=== PATIENT | female | born 1995 | race Two or more races ===

== ENCOUNTER 2023-09-30 03:16 | Inpatient (IN) | payer OTHER ==
[~2023-09-30] VITALS: Ht 167.6 cm; Wt 64.9 kg
[2023-09-30] MEDS ORDERED: ZYLOPRIM100 M1 PO (03:18)
[2023-09-30] MEDS ORDERED: ZOFRAN8 MG PO (03:19)
[2023-09-30] MEDS ORDERED: OXYCODONE HCL20 M1 PO (03:19)
[2023-09-30] MEDS ORDERED: ALPRAZOLAM ODT1 MG PO (03:24)
[2023-09-30] MEDS ORDERED: HYOSCYAMINE0.125 M2 PO (03:25)
[2023-09-30] MEDS ORDERED: MEPERIDINE HCL/PF 50 MG/ML VIAL IM STA (03:33)
[2023-09-30] MEDS ORDERED: PROMETHAZINE HCL 50 MG/ML AMPUL IM STA (03:34)
[2023-09-30] MEDS ORDERED: FAMOTIDINE/PF 20 MG/2 ML VIAL IV PUSH STA (03:34)
[2023-09-30] MEDS ORDERED: 0.9 % SODIUM CHLORIDE 1,000 ML IV ONE (03:45)
[2023-09-30 04:00] LABS: HEMATOCRIT 38.5 % (36.0-45.00); HEMOGLOBIN 13.4 g/dL (12.0-15.00); MEAN CELL VOLUME 87.1 fL (80.00-100.00); MEAN CORPUSCULAR HEMOGLOBIN 30.4 pg (27.00-32.0); MEAN CORPUSCULAR HGB CONC 34.9 g/dl (32.0-36.0); PLATELET COUNT 290 K/uL (150-450); RED BLOOD COUNT 4.42 M/uL (4.00-6.00); RED CELL DISTRIBUTION WIDTH 12.7 % (11.5-14.5)
[2023-09-30 04:00] LABS: PH,URINE 7.5 (5.0-8.0); URINE APPEARANCE Error; URINE BILIRRUBIN Negative (NEGATIVE); URINE BLOOD Negative; URINE COLOR Yellow; URINE GLUCOSE Negative (NEGATIVE); URINE LEUKOCYTE Trace; URINE NITRATE Negative; URINE PROTEIN Negative (NEGATIVE); URINE UROBILINOGEN 0.2 E.U./dl
[2023-09-30 04:01] LABS: URINE BACTERIA 26.4 uL (0.0-1933); URINE EPITHELIAL CELLS 14.2 uL (0.0-38.8); URINE RBC 6.3 uL (0.0-20.8); URINE WBC 20.8 uL (0.0-23.2)
[2023-09-30 04:14] LABS: INR 1.18; PARTIAL THROMBOPLASTIN TIME 26.2 SECONDS (22.0-34.0); PROTHROMBIN TIME 12.2 SECONDS (9.0-11.5)
[2023-09-30] MEDS ORDERED: ONDANSETRON HCL 2 MG/ML VIAL IV STA (04:46)
[2023-09-30 04:50] LABS: ALBUMIN 4.7 gm/dL (3.4-5.0); ALKALINE PHOSPHATASE 63 U/L (50-136); ALT/SGPT 22 U/L (12-78); AMYLASE 156 U/L (25-115); ANION GAP 16 (10.0-20.0); AST/SGOT 14 U/L (15-37); BILIRUBIN TOTAL 0.66 mg/dL (0.3-1.2); BILIRUBIN,UNCONJUGATED 0.46 mg/dL (0.0-0.6); BLOOD UREA NITROGEN 9 mg/dL (7-18); BUN CREA RATIO 10 (7.0-25.0); CALCIUM 9.7 mg/dL (8.5-10.1); CARBON DIOXIDE 21 mEq/L (21-32); CHLORIDE 108 mmol/L (98-107); CREATININE SERUM 0.92 mg/dL (0.55-1.02); GFR 71.68; GLOBULINA 3.7 G/DL (2.4-3.5); GLUCOSE FASTING 131 mg/dL (65-100); HCG QUANTITATIVE < 1 mUI/mL (1-3); OSMOLALITY SERUM 285 MOSM/KG (275-295); SODIUM 143 mmol/L (136-145); TOTAL PROTEIN 8.4 gm/dL (6.4-8.2)
[2023-09-30 04:51] LABS: LIPASE 112 U/L (13-75)
[2023-09-30 05:02] LABS: POTASSIUM 2.47 mEq/L (3.5-5.1)
[2023-09-30] MEDS ORDERED: MEPERIDINE HCL 25 MG/ML AMPUL IV STA (06:08)
[2023-09-30 06:43] LABS: CALCIUM 8.8 mg/dL (8.5-10.1); CREATININE SERUM 0.64 mg/dL (0.55-1.02); GFR 108.96
[2023-09-30 06:48] LABS: POTASSIUM 2.59 mEq/L (3.5-5.1)
[2023-09-30] MEDS ORDERED: POTASSIUM CHLORIDE IN 0.9%NACL 1,000 ML IV ONE (07:00)
[2023-09-30] MEDS ORDERED: LORazepam 2 MG/ML VIAL IV ONE (09:15)
[2023-09-30 10:20] LABS: PHOSPHOKINASE CREATININE 381 U/L (26-192)
[2023-09-30 10:26] LABS: C-REACTIVE PROTEIN < 0.29 MG/DL (0.00-0.29)
[2023-09-30] MEDS ORDERED: ONDANSETRON HCL 8 MG in 0.9 % SODIUM CHLORIDE 50 ML IV ONE (14:30)
[2023-09-30] MEDS ORDERED: ACETAMINOPHEN 500 MG GEL..CAP PO PRN (14:30)
[2023-09-30] MEDS ORDERED: CEFTRIAXONE SODIUM 2,000 MG in 0.9 % SODIUM CHLORIDE 100 ML IV SCH (14:34)
[2023-09-30 14:40] LABS: COCAINE NEGATIVE (NEGATIVE); METHADONE NEGATIVE (NEGATIVE); OPIATES NEGATIVE (NEGATIVE); THC ( Cannabinoids) POSITIVE (NEGATIVE)
[2023-09-30] MEDS ORDERED: 0.9 % SODIUM CHLORIDE 1,000 ML IV SCH (14:45)
[2023-09-30] MEDS ORDERED: POTASSIUM CHLORIDE IN WATER 100 ML IV SCH (16:00)
[2023-09-30] MEDS ORDERED: PROMETHAZINE HCL 25 MG/ML AMPUL IM ONE (16:00)
[2023-09-30 16:42] LABS: URINE APPEARANCE Clear; URINE BILIRRUBIN Negative (NEGATIVE); URINE BLOOD Small; URINE COLOR Yellow; URINE GLUCOSE Negative (NEGATIVE); URINE LEUKOCYTE Small; URINE NITRATE Negative; URINE PROTEIN Negative (NEGATIVE); URINE UROBILINOGEN 0.2 E.U./dl
[2023-09-30 16:45] LABS: URINE BACTERIA 60.4 uL (0.0-1933); URINE EPITHELIAL CELLS 29.6 uL (0.0-38.8); URINE RBC 7.3 uL (0.0-20.8); URINE WBC 31.5 uL (0.0-23.2)
[2023-09-30] MEDS ORDERED: SUCRALFATE 1 G TABLET PO SCH (17:00)
[2023-09-30 17:03] LABS: MAGNESIUM 1.9 mg/dL (1.8-2.4)
[2023-09-30] MEDS ORDERED: FAMOTIDINE/PF 20 MG in 0.9 % SODIUM CHLORIDE 8 ML IV PUSH SCH (21:00)
[2023-10-01] MEDS ORDERED: ONDANSETRON HCL 2 MG/ML VIAL IV PRN (01:00)
[2023-10-01] MEDS ORDERED: MORPHINE SULFATE 4 MG/ML CARTRIDGE IV PRN (02:45)
[2023-10-01 05:42] LABS: ALBUMIN 3.5 gm/dL (3.4-5.0); BILIRUBIN TOTAL 0.61 mg/dL (0.3-1.2); CALCIUM 8.7 mg/dL (8.5-10.1); CREATININE SERUM 0.63 mg/dL (0.55-1.02); GFR 110.95; POTASSIUM 3.4 mEq/L (3.5-5.1); TOTAL PROTEIN 6.5 gm/dL (6.4-8.2)
[2023-10-01] MEDS ORDERED: PANTOPRAZOLE SODIUM 40 MG/VIAL VIAL IV SCH (12:40)
[2023-10-01] MEDS ORDERED: KETOROLAC TROMETHAMINE 30 MG VIAL IV SCH (12:40)
[2023-10-01] MEDS ORDERED: LORazepam 2 MG/ML VIAL IV SCH (12:40)
[2023-10-01] MEDS ORDERED: METOCLOPRAMIDE HCL 5 MG/ML VIAL IV SCH (21:03)
[2023-10-02 07:13] LABS: CREATININE SERUM 0.6 mg/dL (0.55-1.02); GFR 117.38; POTASSIUM 3.12 mEq/L (3.5-5.1)
[2023-10-02] MEDS ORDERED: POTASSIUM CHLORIDE IN WATER 100 ML IV SCH (10:17)
[2023-10-02] MEDS ORDERED: MAGNESIUM SULFATE IN WATER 50 ML IV ONE (10:30)
[2023-10-03] MEDS ORDERED: POTASSIUM CHLORIDE 20MEQ/100ML H2O PB IV ONE (06:22)
[2023-10-03 08:59] LABS: CALCIUM 8.6 mg/dL (8.5-10.1); CREATININE SERUM 0.58 mg/dL (0.55-1.02); GFR 122.06; POTASSIUM 3.55 mEq/L (3.5-5.1)
== END 2023-10-03 14:13 | disposition home or self-care (01) | DRG 641 ==
LOC: ER 03:16 → MEDJ 14:58 → SEC-K 14:58 → MEDJ 16:21
PROVIDERS: General Practice; ADMIT Internal Medicine; ATTEND Internal Medicine
PROC: BW40ZZZ Ultrasonography of Abdomen (ICD-10-PCS; principal; 2023-09-30)
PROC: BW21YZZ Computerized Tomography (CT Scan) of Abdomen and Pelvis using Other Contrast (ICD-10-PCS; 2023-09-30)
DX: E87.6 Hypokalemia (principal); F12.988 Cannabis use, unspecified with other cannabis-induced disorder; R11.2 Nausea with vomiting, unspecified